=== PATIENT | male | born 1960 | race Caucasian/White ===

== ENCOUNTER 2017-04-27 05:07 | Emergency (ER) | payer OTHER ==
[~2017-04-27] VITALS: Ht 182.9 cm; Wt 90.7 kg
[2017-04-27 05:14] VITALS: BP_SYST 135
[2017-04-27] MEDS ORDERED: BACITRACIN 1 GM OINT TP ONE (05:30)
[2017-04-27] MEDS ORDERED: LIDOCAINE 1% 10 MG/ML, 20 ML MDV IJ ONE (05:30)
[2017-04-27] MEDS ORDERED: DIPH-TET-PERTUS Vaccine 0.5 ML VIAL (ADACEL) IM ONE (05:30)
[2017-04-27 06:00] VITALS: BP_SYST 128
== END 2017-04-27 06:00 | disposition home or self-care (01) ==
LOC: SED 05:07
DX: S01.511A Laceration without foreign body of lip, initial encounter (principal); F17.200 Nicotine dependence, unspecified, uncomplicated; W54.0XXA Bitten by dog, initial encounter; Y93.89 Activity, other specified; Y92.89 Other specified places as the place of occurrence of the external cause; Y99.8 Other external cause status
CPT/HCPCS: 40650; 90471; 90715; 99284; J2001

== ENCOUNTER 2019-01-03 01:59 | Emergency (ER) | payer BC, OTHER ==
[~2019-01-03] VITALS: Ht 167.6 cm; Wt 90.7 kg
--- NOTE | 2019-01-03 02:10 | NUR ---
Patient to ER bed 06 to gown for evaluation. Side rails up.
[2019-01-03 02:12] VITALS: BP_SYST 150
--- NOTE | 2019-01-03 02:20 | NUR ---
Patient AOx4, ambulatory, presents to ER with complaint of lower back pain radiating to left hip 03/17 x 1 week. Patient states "I can't strengthen up". Patient states he felt his back "pop" when he reached for something. Patient has hx of sciatica x 20 years. Recently went to [place] and got a prescription for a muscle relaxer, anti-inflammatory, and percocet but have been slightly effective. Patient states "I just can't sleep". No other symptoms or complaints.
--- NOTE | 2019-01-03 02:48 | NUR ---
KAMRAN Mcknight at bedside for medical evaluation.
[2019-01-03] MEDS ORDERED: PREDNISONE 20 MG TABLET PO ONE (03:00)
[2019-01-03] MEDS ORDERED: DIAZEPAM 5 MG TABLET (VALIUM) PO ONE (03:00)
[2019-01-03] MEDS ORDERED: OXYCODONE/ACETAMINOPHEN 5-325 TABLET PO ONE (03:00)
--- NOTE | 2019-01-03 03:14 | NUR ---
Patient is to take the Percocet and Valium once he gets home, dispenced by MD Mcknight.
[2019-01-03 03:19] VITALS: BP_SYST 148
--- NOTE | 2019-01-03 03:19 | NUR ---
Patient given written and verbal discharge instructions and verbalizes understanding. ER MD discussed with patient the results and treatment provided. Patient in stable condition. ID arm band removed. Rx of Prednisone, Percocet, and Diazepam given. Patient educated on pain management and to follow up with PMD. Pain Scale 2/10 tolerable to patient. Opportunity for questions provided and answered. Medication side effect fact sheet provided.
== END 2019-01-03 03:19 | disposition home or self-care (01) ==
LOC: SED 01:59
DX: M54.40 Lumbago with sciatica, unspecified side (principal)
CPT/HCPCS: 99283; J7512